=== PATIENT | female | born 1990 | race African-American/Black ===

== ENCOUNTER 2020-05-17 10:33 | Inpatient (IN) | payer OTHER ==
[2020-05-17 11:16] VITALS: BMI 37.4
[2020-05-17] MEDS ORDERED: Morphine 4 MG/ML VIAL SLOW IVP PRN (11:38)
[2020-05-17] MEDS ORDERED: hydrALAZINE 20 MG/ML VIAL SLOW IVP PRN ×3 (11:38→17:03)
[2020-05-17] MEDS ORDERED: Ondansetron PF 4 MG/2 ML Vial IVP PRN ×3 (13:37→17:03)
[2020-05-17] MEDS ORDERED: Butorphanol Tartrate 1 MG/ML VIAL SLOW IVP PRN (13:37)
[2020-05-17] MEDS ORDERED: HYDROcodone/Acetaminophen 5/325 mg Tablet PO PRN ×3 (13:37→17:03)
[2020-05-17] MEDS ORDERED: Lidocaine 1% (PF) 30 ML VIAL SC PRN (13:37)
[2020-05-17] MEDS ORDERED: NS / Oxytocin 40 units/1000ml 1,000 ML IV PRN (13:37)
[2020-05-17] MEDS ORDERED: Ibuprofen 800 MG TAB PO PRN (13:37)
[2020-05-17] MEDS ORDERED: Lactated Ringer's 1,000 ML IV SCH ×2 (13:45)
[2020-05-17 14:53] LABS: Mean Corpuscular HGB CONC 32.8 g/dL (32.0-36.0); Mean Corpuscular Hemoglobin 27.7 pg (27.0-31.0); Mean Corpuscular Volume 84.4 fL (78.0-98.0); Platelet Count 168 thou/uL (130-400); Red Blood Cell (RBC) Count 5.07 mill/uL (4.20-5.40); White Blood Cell (WBC) Count 13.7 thou/uL (4.8-10.8)
[2020-05-17] MEDS ORDERED: Fentanyl 4 mcg/Bup 0.1% Cadd 100 ML ONE (15:01)
[2020-05-17] MEDS ORDERED: Promethazine HCl 25 MG/ML VIAL IM PRN (15:09)
[2020-05-17] MEDS ORDERED: Lactated Ringer's 500 ML IV PRN (15:09)
[2020-05-17] MEDS ORDERED: Naloxone HCl 0.4 mg/ml Vial IVP PRN ×2 (15:09)
[2020-05-17] MEDS ORDERED: ePHEDrine 50 MG/ML VIAL SLOW IVP PRN (15:09)
[2020-05-17] MEDS ORDERED: Acetaminophen 325 MG TAB PO PRN (15:09)
[2020-05-17] MEDS ORDERED: diphenhydrAMINE 50 MG/ML VIAL IVP PRN (15:09)
[2020-05-17] MEDS ORDERED: Fentanyl 4 mcg/Bupivacaine 0.1% Cassette 100 ML EPIDURAL SCH (15:15)
[2020-05-17] MEDS ORDERED: Communication Order-Pharmacy FS SCH (15:15)
[2020-05-17 15:26] LABS: Syphilis Antibody Nonreactive (Nonreactive); Syphilis Antibody Index 0.07 S/CO (<1.00 Non-Reactive)
[2020-05-17 15:27] LABS: HBSAg Index 0.18 S/CO (0-0.99); Hep B Surf Ag Non-Reactive S/CO (NonReactive)
[2020-05-17] MEDS ORDERED: NS w/ Oxytocin 30 units 500 ML ONE ×2 (16:09→17:33)
[2020-05-17] MEDS ORDERED: Bisacodyl 10 MG SUPP PR PRN (17:03)
[2020-05-17] MEDS ORDERED: Milk Of Magnesia 30 ML UDCUP PO PRN (17:03)
[2020-05-17] MEDS ORDERED: Lanolin Ointment 7 GM TUBE TOP PRN (17:03)
[2020-05-17] MEDS ORDERED: NS / Oxytocin 40 units/1000ml 1,000 ML IV SCH (17:03)
[2020-05-17] MEDS ORDERED: Adacel (T-DAP) 0.5 ML SYRINGE IM ONE (17:03)
[2020-05-17] MEDS ORDERED: diphenhydrAMINE 25 MG CAP PO PRN (17:03)
[2020-05-17] MEDS: Ferrous Sulfate 325 MG TAB PO SCH (20:19)
[2020-05-17] MEDS: Docusate Calcium (SURFAK) 240 MG CAP PO SCH (21:43)
[2020-05-17] MEDS: Ibuprofen 800 MG TAB PO SCH (21:43)
[2020-05-18 01:38] LABS: SARS-CoV-2 MS2 Positive; SARS-CoV-2 N Gene Negative; SARS-CoV-2 S Gene Negative; SARS-CoV-2 by NAA Not Detected (NotDetected); SARS-CoV-2 orf1ab Negative
[2020-05-18] MEDS ORDERED: Sodium Chloride 0.9% 10 ML ONE (04:23)
[2020-05-18] MEDS: Ibuprofen 800 MG TAB PO SCH ×3 (05:58→21:46)
[2020-05-18] MEDS: Ferrous Sulfate 325 MG TAB PO SCH ×2 (09:26→16:14)
[2020-05-18] MEDS: Docusate Calcium (SURFAK) 240 MG CAP PO SCH ×2 (09:33→21:46)
[2020-05-18] MEDS: Prenatal Vitamin 1 TAB PO SCH (09:33)
[2020-05-18 15:11] LABS: SARS-CoV-2 IgG Ab Reactive (NonReactive); SARS-CoV-2 IgG Index 5.81 S/CO (< 1.40)
[2020-05-19] MEDS: Ibuprofen 800 MG TAB PO SCH ×2 (05:52→14:11)
[2020-05-19] MEDS: Ferrous Sulfate 325 MG TAB PO SCH (07:14)
[2020-05-19] MEDS: Prenatal Vitamin 1 TAB PO SCH (07:49)
[2020-05-19] MEDS: Docusate Calcium (SURFAK) 240 MG CAP PO SCH (07:49)
[2020-05-19 08:23] VITALS: BP 130/83; TEMP 98.6
== END 2020-05-19 15:25 | disposition home or self-care (01) | DRG 807 ==
LOC: L&D/OP 10:33 → L&D 14:30 → 3SW 19:23
PROVIDERS: ADMIT Family Medicine; ATTEND Family Medicine
PROC: 10E0XZZ Delivery of Products of Conception, External Approach (ICD-10-PCS; principal; 2020-05-17)
PROC: 0UQMXZZ Repair Vulva, External Approach (ICD-10-PCS; 2020-05-17)
DX: O69.81X0 Labor and delivery complicated by cord around neck, without compression, not applicable or unspecified (principal); Z37.0 Single live birth; Z3A.39 39 weeks gestation of pregnancy; Z20.822 Contact with and (suspected) exposure to COVID-19
CPT/HCPCS: 36415; 51702; 85027; 85461; 86769; 86780; 86850; 86870; 86900; 86901; 87340; 87635; 90384; 90715; 96372; 99285; J2590; U0003